=== PATIENT | male | born 1970 | race Caucasian/White ===

== ENCOUNTER 2017-09-22 09:15 | Emergency (ER) | payer BC ==
[~2017-09-22] VITALS: Ht 177.8 cm; Wt 95.6 kg
[2017-09-22 09:23] VITALS: BP 154/96; PULSE 77; RESP 16; TEMP 97.9; O2SAT 98
[2017-09-22] MEDS ORDERED: FLUO-1 PO (09:34)
[2017-09-22] MEDS ORDERED: SIMV5TAB3 PO (09:34)
[2017-09-22] MEDS ORDERED: OMEP10CA PO (09:34)
[2017-09-22] MEDS ORDERED: AMOX500T PO (09:41)
[2017-09-22] MEDS ORDERED: PRED20 PO (09:41)
--- NOTE | 2017-09-22 09:44 | PD ---
HPI Chief Complaint: ENT Complaint Time Seen by Provider: 09:34 Travel History International Travel<30 days: No Contact w/Intl Traveler<30days: No Traveled to known affect area: No History of Present Illness HPI 47-year-old male here with bilateral ear pain left greater than right. He is reporting muffled decreased hearing and ear pain and pressure after his flight from [facility] 3 days ago. Denies fever or chills. Reports he nasal congestion and URI preceding symptoms. No drainage from the ears. Symptom severity moderate. No aggravating or alleviating factors. PFSH Past Medical History Depression: Yes High Cholesterol: Yes GERD: Yes Tetanus Vaccination: < 5 Years Influenza Vaccination: No Past Surgical History Appendectomy: Yes Social History Alcohol Use: Yes (occasional) Tobacco Use: No Substance Use: No Allergies-Medications (Allergen,Severity, Reaction): Coded Allergies: No Known Allergies (Unverified , 09/22/17) Reported Meds & Prescriptions Reported Meds & Active Scripts Active Prednisone 20 Mg Tab 40 Mg PO DAILY 3 Days Amoxicillin 500 Mg Tab 500 Mg PO TID 10 Days Reported Prozac (Fluoxetine HCl) 10 Mg Cap Unknown Dose PO DAILY Omeprazole 10 Mg Cap Unknown Dose PO DAILY Simvastatin 5 Mg Tab Unknown Dose PO DAILY Review of Systems Except as stated in HPI: all other systems reviewed are Neg General / Constitutional: No: Fever HENT: Positive: Congestion, Earache Physical Exam Narrative GENERAL: Alert and well-appearing 47-year-old male SKIN: Warm and dry. HEAD: Normocephalic. EYES: No injection or drainage. Ear/nose/throat: Mild bilateral TM erythema left greater than right. Left TM mildly cloudy. No canal swelling or drainage. No TM perforation. No mastoid tenderness. NECK: Supple, trachea midline. No JVD or lymphadenopathy. Data Data Last Documented VS Vital Signs Date Time Temp Pulse Resp B/P (MAP) Pulse Ox O2 Delivery O2 Flow Rate FiO2 09/22/17 09:23 97.9 77 16 154/96 (115) 98 MDM Medical Decision Making Medical Screen Exam Complete: Yes Emergency Medical Condition: Yes Differential Diagnosis Otitis media, serous otitis, eustachian tube dysfunction Narrative Course 47-year-old male here with bilateral ear pain left greater than right. He is reporting muffled decreased hearing and ear pain and pressure after his flight from [place] 3 days ago. On exam he has mild bilateral TM erythema left TM is slightly cloudy and opaque. No mastoid tenderness. he'll be treated for otitis media and eustachian tube dysfunction Diagnosis Primary Impression: Otitis media Qualified Codes: H66.90 - Otitis media, unspecified, unspecified ear Additional Impression: Eustachian tube dysfunction Qualified Codes: H69.82 - Other specified disorders of eustachian tube, left ear Referrals: Primary Care Physician Additional Instructions: Medications as directed. Tylenol or ibuprofen as needed for pain. Follow-up to primary doctor Scripts Prednisone (Prednisone) 20 Mg Tab 40 MG PO DAILY for 3 Days, #6 TAB 0 Refills Prov: Kenia Foley 09/22/17 Amoxicillin (Amoxicillin) 500 Mg Tab 500 MG PO TID for Infection for 10 Days, TAB 0 Refills Prov: Kenia Foley 09/22/17 Disposition: 01 DISCHARGE HOME Condition: Stable Kenia Foley Sep 22, 2017 09:44
== END 2017-09-22 09:48 | disposition home or self-care (01) ==
LOC: PHEFT 09:15
DX: H66.93 Otitis media, unspecified, bilateral (principal); H69.92 Unspecified Eustachian tube disorder, left ear
CPT/HCPCS: 99283

== ENCOUNTER 2017-09-25 09:32 | Emergency (ER) | payer BC ==
[~2017-09-25] VITALS: Ht 177.8 cm; Wt 96.0 kg
[~2017-09-25 09:32] MED LIST: AMOX500T PO; FLUO-1 PO; OMEP10CA PO; PRED20 PO; SIMV5TAB3 PO
[2017-09-25 09:41] VITALS: BP 167/93; PULSE 71; RESP 15; TEMP 98; O2SAT 99
--- NOTE | 2017-09-25 10:22 | PD ---
HPI Chief Complaint: ENT Complaint Time Seen by Provider: 10:10 Travel History International Travel<30 days: No Contact w/Intl Traveler<30days: No Traveled to known affect area: No History of Present Illness HPI 47-year-old male presents to ED for evaluation of bilateral ear pain, left greater than right. Onset after he flew to [place] about 10 days ago. HE reports muffled hearing. He denies fever, chills, nausea, vomiting. He was seen in the ED and is currently taking steroids and amoxicillin. He states that he was only provided a three-day prescription for amoxicillin. He endorses compliance with antibiotics with no improvement of symptoms. He has not followed up with an ENT. [facility] Past Medical History Depression: Yes High Cholesterol: Yes Diminished Hearing: No GERD: Yes Tetanus Vaccination: Unknown Past Surgical History Appendectomy: Yes Social History Alcohol Use: Yes (occasional) Tobacco Use: No Substance Use: No Allergies-Medications (Allergen,Severity, Reaction): Coded Allergies: No Known Allergies (Unverified , 09/25/17) Reported Meds & Prescriptions Reported Meds & Active Scripts Active Amoxicillin 500 Mg Tab 500 Mg PO TID 7 Days Amoxicillin 500 Mg Tab 500 Mg PO TID 10 Days Reported Prozac (Fluoxetine HCl) 10 Mg Cap Unknown Dose PO DAILY Omeprazole 10 Mg Cap Unknown Dose PO DAILY Simvastatin 5 Mg Tab Unknown Dose PO DAILY Review of Systems Except as stated in HPI: all other systems reviewed are Neg Physical Exam Narrative GENERAL: Well-nourished, well-developed white male in no acute distress. SKIN: Warm and dry. HEAD: Normocephalic. Atraumatic. EYES: No scleral icterus. No injection or drainage. PERRLA. EOMI. ENT: Right-sided cerumen impaction. Left sided tympanic membrane is cloudy effusion, mild erythema. No loss of landmarks. Nasal mucosa is moist. Oropharynx without erythema, edema or exudate. NECK: Supple, trachea midline. No JVD or lymphadenopathy. CARDIOVASCULAR: Regular rate and rhythm without murmurs, gallops, or rubs. RESPIRATORY: Breath sounds clear and equal bilaterally. No accessory muscle use. GASTROINTESTINAL: Abdomen soft, non-tender, nondistended. + Bowel sounds MUSCULOSKELETAL: No cyanosis, or edema. BACK: Nontender without obvious deformity. No CVA tenderness. Data Data Last Documented VS Vital Signs Date Time Temp Pulse Resp B/P (MAP) Pulse Ox O2 Delivery O2 Flow Rate FiO2 09/25/17 09:41 98.0 71 15 167/93 (117) 99 Orders Orders Ed Discharge Order (09/25/17 10:40) MDM Medical Decision Making Medical Screen Exam Complete: Yes Emergency Medical Condition: Yes Differential Diagnosis Cerumen impaction versus otitis media versus serous effusion versus other Narrative Course 47-year-old male presents to ED for evaluation of bilateral ear pain, left greater than right. Onset after he flew to [place] about 10 days ago. He reports muffled hearing. He denies fever, chills, nausea, vomiting. He was seen in the ED and is currently taking steroids and amoxicillin. He endorses compliance with antibiotics with no improvement of symptoms. Patient afebrile on presentation. Physical exam reveals otitis media the left ureter and a cerumen impaction in the right ear. Cerumen impaction was irrigated, see my note for details. No evidence of infection post procedure. Patient course of amoxicillin. He is provided an additional 7 days, instructed to continue with the medication, take ibuprofen as needed for pain, follow-up with ENT. He is stable and discharged home. Procedures Procedure Narrative Cerumen impaction right ear: A 50:50 mixture of warm water and peroxide was used to irrigate the ear until a large cerumen plug was expelled. Postprocedure evaluation reveals pearly-mitchell tympanic membrane with serous effusion, no signs of infection. Diagnosis Primary Impression: Impacted cerumen, right ear Additional Impression: Left otitis media with effusion Referrals: Ear / Nose / Throat Specialist Patient Instructions: Ear Infection (ED), General Instructions Additional Instructions: Rest, hydrate. Continue antibiotics as prescribed. Nothing in the ear. Tylenol or Motrin as directed on the label as needed for continued pain. Follow-up with ENT if symptoms fail to resolve. Return to the ED for any urgent or emergent medical condition. Med/Other Pt SpecificInfo: Prescription(s) given Scripts Amoxicillin (Amoxicillin) 500 Mg Tab 500 MG PO TID for Infection for 7 Days, #21 TAB 0 Refills Prov: Ciara Cifuentes MD 09/25/17 Disposition: 01 DISCHARGE HOME Condition: Stable Latoya Castillo Sep 25, 2017 10:22
[2017-09-25] MEDS ORDERED: AMOX500T PO (10:39)
== END 2017-09-25 10:58 | disposition home or self-care (01) ==
LOC: PHEFT 09:32
DX: H61.21 Impacted cerumen, right ear (principal); H65.92 Unspecified nonsuppurative otitis media, left ear; E78.00 Pure hypercholesterolemia, unspecified; K21.9 Gastro-esophageal reflux disease without esophagitis; F32.9 Major depressive disorder, single episode, unspecified
CPT/HCPCS: 99283

== ENCOUNTER 2017-09-29 09:42 | Emergency (ER) | payer BC ==
[~2017-09-29] VITALS: Ht 175.3 cm; Wt 94.8 kg
[~2017-09-29 09:42] MED LIST changes: -PRED20 PO
[2017-09-29 09:45] VITALS: BP 149/94; PULSE 70; RESP 16; TEMP 98.1; O2SAT 98
--- NOTE | 2017-09-29 10:33 | PD ---
HPI Chief Complaint: ENT Complaint Time Seen by Provider: 10:09 Travel History International Travel<30 days: No Contact w/Intl Traveler<30days: No Traveled to known affect area: No History of Present Illness HPI 47-year-old male presents to the emergency Department with complaint of bilateral ear pain, left worse than right, decreased hearing, and his ears feeling clog since September 19 after taking a flight from [facility]. He was seen here on September 22 and was prescribed amoxicillin and prednisone for otitis media and eustachian tube dysfunction. He is still taking the antibiotics but is still having continued symptoms. Denies fever, vomiting, cough, sore throat, nasal congestion. Denies ear drainage. Has not taken any other medications, other than the antibiotics, or tried any other treatments to alleviate symptoms. Symptoms are mild in severity. No known aggravating or relieving factors. Has no other medical complaints. No primary care provider. No known allergies. History of hypercholesterolemia. No other modifying factors or associated signs and symptoms. PFSH Past Medical History Depression: Yes High Cholesterol: Yes Diminished Hearing: No GERD: Yes Influenza Vaccination: No Past Surgical History Appendectomy: Yes Social History Alcohol Use: Yes (occasional) Tobacco Use: No Substance Use: No Allergies-Medications (Allergen,Severity, Reaction): Coded Allergies: No Known Allergies (Unverified , 09/29/17) Reported Meds & Prescriptions Reported Meds & Active Scripts Active Augmentin (Amoxicillin-Clavulanate) 875-125 Mg Tab 1 Tab PO BID 10 Days Amoxicillin 500 Mg Tab 500 Mg PO TID 7 Days Reported Prozac (Fluoxetine HCl) 10 Mg Cap 20 PO DAILY Omeprazole 10 Mg Cap 10 Mg PO DAILY Simvastatin 5 Mg Tab 40 PO DAILY Review of Systems Except as stated in HPI: all other systems reviewed are Neg Physical Exam Narrative GENERAL: Well-nourished, well-developed male patient, in no acute distress; afebrile, nontoxic-appearing SKIN: Warm and dry. No rash. HEAD: Atraumatic. Normocephalic. EYES: Pupils equal and round. No scleral icterus. No injection or drainage. EARS: Bilateral pinnae and external canals appear within normal limits. Bilateral tympanic membrane with erythema, loss of landmarks, and with dullness ; left worse and right; without perforation. ENT: Mucosa pink and moist. Oral Pharynx without erythema; without edema or exudates. No uvular edema. No uvular, palatal, or tonsillar deviation. Airway patent. NECK: Trachea midline. No lymphadenopathy. CARDIOVASCULAR: Regular rate. RESPIRATORY: No accessory muscle use. GASTROINTESTINAL: Rounded. MUSCULOSKELETAL: No obvious deformities. No clubbing. No cyanosis. No edema. NEUROLOGICAL: Awake and alert. Oriented 3. No obvious cranial nerve deficits. Motor grossly within normal limits. Normal speech. Moves all extremities. 5/5 strength to all extremities. PSYCHIATRIC: Appropriate mood and affect; insight and judgment normal. Data Data Last Documented VS Vital Signs Date Time Temp Pulse Resp B/P (MAP) Pulse Ox O2 Delivery O2 Flow Rate FiO2 09/29/17 09:45 98.1 70 16 149/94 (112) 98 Orders Orders Lidocaine 1% Inj (50 Ml) (Xylocaine 1% I (09/29/17 10:45) Ceftriaxone Inj (Rocephin Inj) (09/29/17 10:45) Ed Discharge Order (09/29/17 10:36) Lidocaine Pf 1% Inj (Xylocaine-Mpf 1% In (09/29/17 10:38) MDM Medical Decision Making Medical Screen Exam Complete: Yes Emergency Medical Condition: Yes Medical Record Reviewed: Yes Differential Diagnosis Otitis media, cerumen impaction, foreign body Narrative Course 47-year-old male physical exam consistent with otitis media. He was seen here on October 02 and is being treated with amoxicillin which he is still taking. Bilateral ear still appear with erythema, dullness and loss of landmarks; left worse than right. Rocephin 1 g administered in the ER. Instructed patient to stop amoxicillin and Augmentin prescribed for home. Instructed patient to follow up with ENT. Instructed patient to use [id number] antihistamines to help with symptom management. Instructed patient to follow up with primary care provider. Patient verbalizes understanding and agreement with treatment plan. Patient is medically cleared and stable for discharge. Discussed reasons to return to the emergency department. Patient agrees with treatment plan. The patients vital signs are stable and the patient is stable for outpatient follow-up and treatment. Patient discharged home, stable and in no acute distress. Diagnosis Primary Impression: Bilateral otitis media Qualified Codes: H66.93 - Otitis media, unspecified, bilateral Referrals: Ear / Nose / Throat Specialist Primary Care Physician Patient Instructions: General Instructions, Serous Otitis Media (ED) Additional Instructions: Stop Amoxicillin and start Augmentin 09/30/2017 Take antibiotics as prescribed and complete full course Ibuprofen or Tylenol as directed and as needed to reduce pain and fever [id number] antihistamines or decongestants as directed and as needed for symptom management Avoid getting water in the ears Do not put anything in the ears; including Q-tips Follow-up with primary care provider Return to the emergency department immediately with worsening of symptoms Med/Other Pt SpecificInfo: Prescription(s) given, Med Stopped Scripts Amoxicillin-Clavulanate (Augmentin) 875-125 Mg Tab 1 TAB PO BID for Infection for 10 Days, #20 TAB 0 Refills Prov: Mervat Lara 09/29/17 Disposition: 01 DISCHARGE HOME Condition: Stable Mervat Lara Sep 29, 2017 10:33
[2017-09-29] MEDS ORDERED: AUGM875T3 PO (10:36)
[2017-09-29] MEDS ORDERED: LIDOCAINE HCL 1% PF 10 ML VIAL ONE (10:38)
[2017-09-29] MEDS ORDERED: LIDOCAINE HCL 1% 50 ML VIAL IM ONE (10:45)
== END 2017-09-29 11:12 | disposition home or self-care (01) ==
LOC: PHEFT 09:42
DX: H66.93 Otitis media, unspecified, bilateral (principal)
CPT/HCPCS: 96372; 99283; J0696